=== PATIENT | female | born 1945 | race Caucasian/White ===

== ENCOUNTER → 2016-05-21 | Outpatient (CLI) | payer MEDICARE ==
[~2016-05-21] MED LIST: ASPI81TA2 PO; CHOL100055 PO; FLUT16SP EA NOSTRIL; MULT-28 PO; NAPR220T PO; PANT20TA13 PO; TAMO10TA PO; TRIA1TAB3 PO; [UNRECOGNIZED DRUG - CODE] PO
[2016-05-21 12:20] LABS: ALBUMIN 3.9 G/DL (3.5-5.0); ALBUMIN/GLOBULIN RATIO 1.2 RATIO (1.1-2.2); ALKALINE PHOSPHATASE 59 U/L (38-126); ALT (SGPT) 36 U/L (9-52); AST (SGOT) 40 U/L (14-36); TOTAL PROTEIN 7.1 G/DL (6.3-8.2)
[2016-05-21 13:29] LABS: CA 27-29 CALCULATED 17.01 U/ML (0-37.7)
== END ==
LOC: LAB 11:58
PROVIDERS: ATTEND Internal Medicine Medical Oncology
DX: C50.211 Malignant neoplasm of upper-inner quadrant of right female breast (principal); C50.411 Malignant neoplasm of upper-outer quadrant of right female breast
CPT/HCPCS: 36415; 80076; 86300